=== PATIENT | female | born 1950 | race Caucasian/White ===

== ENCOUNTER 2016-10-14 09:16 | Emergency (ER) | payer MEDICARE, BC ==
[2016-10-14 09:57] VITALS: BP 124/68
--- NOTE | 2016-10-14 10:14 | UC ---
Complaint Female HPI - HPI Summary HPI Summary: Urinary pain, urgency, and cramping starting 2-3 days ago. Has had UTIs in the past, this feels just like it. No fever, vomiting, or back pain. - History Of Current Complaint Chief Complaint: UCGU Stated Complaint: UTI COMPLAINT Time Seen by Provider: 10/14/16 09:59 Hx Obtained From: Patient ?: No Onset/Duration: Gradual Onset, Lasting Days Timing: Constant Severity Initially: Mild Severity Currently: Mild Character: Burning, Cramping Aggravating Factor(s): Urination Associated Signs And Symptoms: Negative: Nausea, Vomiting(# Of Episodes =) - Allergies/Home Medications Allergies/Adverse Reactions: Allergies Allergy/AdvReac Type Severity Reaction Status Date / Time POISON LOLI Allergy BLISTERS, Uncoded 10/14/16 09:50 ITCHY PMH/Surg Hx/FS Hx/Imm Hx Other Cancer History: anal cancer with radiation - Surgical History Surgical History: Yes Surgery Procedure, Year, and Place: 2010 ANAL CANCER SURGERY X2, [facility]. 1977 HYSTERECTOMY, [facility]. 2003 LAPAROSCOPIC CHOLECYSTECTOMY. CATARACT 2012 [facility] - Family History Known Family History: Positive: Hypertension - Social History Alcohol Use: Occasionally Alcohol Amount: 1 Q 2 WEEKS Substance Use Type: None Smoking Status (MU): Never Smoked Tobacco Have You Smoked in the Last Year: No - Immunization History Most Recent Influenza Vaccination: 2012 Most Recent Tetanus Shot: <5 YEARS ( OF 10/12/15) Most Recent Pneumonia Vaccination: patient unsure Review of Systems Constitutional: Negative Skin: Negative Eyes: Negative ENT: Negative Respiratory: Negative Cardiovascular: Negative Gastrointestinal: Negative Genitourinary: Dysuria, Frequency, Urgency Motor: Negative Neurovascular: Negative Musculoskeletal: Negative Neurological: Negative Psychological: Negative All Other Systems Reviewed And Are Negative: Yes Physical Exam Triage Information Reviewed: Yes Appearance: Well-Appearing, No Pain Distress, Well-Nourished Vital Signs: Initial Vital Signs Temp 97.2 F 10/14/16 09:52 Pulse 61 10/14/16 09:52 Resp 16 10/14/16 09:52 BP 124/68 10/14/16 09:52 Pulse Ox 100 10/14/16 09:52 Vital Signs Reviewed: Yes Eye Exam: Normal, Other - PERRL Eyes: Positive: Conjunctiva Clear ENT Exam: Normal ENT: Positive: Normal ENT inspection, Hearing grossly normal, Pharynx normal, TMs normal Dental Exam: Normal Neck exam: Normal Neck: Positive: Supple, Nontender Respiratory Exam: Normal Respiratory: Positive: Chest non-tender, Lungs clear, Normal breath sounds, No respiratory distress, No accessory muscle use Cardiovascular Exam: Normal Cardiovascular: Positive: RRR, No Murmur Abdomen Description: Negative: CVA Tenderness (R), CVA Tenderness (L) Musculoskeletal Exam: Normal Neurological Exam: Normal Neurological: Positive: Alert Psychological Exam: Normal Skin Exam: Normal Complaint Female Dx - Differential Dx/Diagnosis Provider Diagnoses: UTI Discharge - Discharge Plan Condition: Stable Disposition: HOME
== END 2016-10-14 10:23 | disposition home or self-care (01) ==
LOC: UCEAST 09:16
DX: N39.0 Urinary tract infection, site not specified (principal); Z87.440 Personal history of urinary (tract) infections; Z85.048 Personal history of other malignant neoplasm of rectum, rectosigmoid junction, and anus; Z92.3 Personal history of irradiation
CPT/HCPCS: 81003; 87077; 87086; 87186; 99212; G0463

== ENCOUNTER 2017-01-25 18:53 | Emergency (ER) | payer MEDICARE, BC ==
[2017-01-25 20:00] LABS: Hematocrit 39 % (35-47); Hemoglobin 13.6 g/dl (12.0-16.0); Mean Corpuscular HGB Conc 35 g/dl (31-36); Mean Corpuscular Hemoglobin 32 pg (27-31); Mean Corpuscular Volume 93 fL (80-97); Mean Platelet Volume 7 um3 (7.4-10.4); Red Blood Count 4.23 10^6/ul (4.0-5.4); Red Cell Distribution Width 14 % (10.5-15); White Blood Count 5.7 10^3/ul (3.5-10.8)
[2017-01-25 20:16] LABS: Albumin 4.4 g/dL (3.2-5.2); BUN/Creatinine Ratio 16.1 (8-20); Calcium 9.8 mg/dL (8.6-10.3); EGFR African American 77.1 (>60); Globulin 2.8 g/dL (2-4); Magnesium 1.9 mg/dL (1.9-2.7); Potassium 3.9 mmol/L (3.5-5.0); Total Bilirubin 0.6 mg/dL (0.2-1.0); Total Protein 7.2 g/dL (6.4-8.9)
[2017-01-25 20:21] LABS: Urine Bacteria 1+ (Absent); Urine Bilirubin Negative (Negative); Urine Glucose Negative (Negative); Urine Nitrite Negative (Negative)
--- NOTE | 2017-01-25 20:28 | RAD ---
Indication: Confusion, amnesia. CT of the brain was performed without IV contrast. Ventricular structures are midline. No midline shift is noted. The extra-axial spaces are unremarkable. There is no evidence of intracranial mass or hemorrhage. No other high or low density lesions are identified. Mastoid air cells and paranasal sinuses are unremarkable. IMPRESSION: There is no intracranial mass or hemorrhage noted.
[2017-01-25 21:31] LABS: TSH (Thyroid Stimulating Horm) 4.37 mcIU/mL (0.34-5.60)
[2017-01-25 21:51] LABS: Benzodiazepine Urine Screen None Detected (None Detect)
--- NOTE | 2017-01-25 22:10 | ED ---
Mark Mg Stephanie, scribed for Rudy Nails MD on 01/25/17 at 2133 . Complex/Multi-Sys Presentation - HPI Summary HPI Summary: Pt is a 66 y/o F with c/o confusion that began at 19:41. Pt was carrying a Lakshmi tree into her house after leaving work at 18:00 today. She describes her symptoms as a de-realization. Symptoms include confusion, mild headache, and slight bleeding with BM that occurred when she returned home at approximately 18:30 today. The pt denies fever, chills, incontinence, trouble with speech, CP, and palpitations. She denies falling, taking medications, alcohol, drug use, and odd odors in her car or at home. - History Of Current Complaint Chief Complaint: EDGeneral Time Seen by Provider: 01/25/17 19:23 Onset/Duration: Sudden Onset, Lasting Hours, Still Present Timing: Constant Associated Signs And Symptoms: Positive: Confusion, Headache - mild, Other - Positive: Blood in BM, Negative: Incontinence, trouble with speech. Negative: Chest Pain, Palpitations, Fever - Allergies/Home Medications Allergies/Adverse Reactions: Allergies Allergy/AdvReac Type Severity Reaction Status Date / Time POISON LOLI Allergy BLISTERS, Uncoded 01/25/17 19:17 ITCHY PMH/Surg Hx/FS Hx/Imm Hx Endocrine/Hematology History: Reports: Hx Anemia Denies: Hx Diabetes, Hx Systemic Lupus Erythematosus Cardiovascular History: Reports: Hx Hypotension Denies: Hx Congestive Heart Failure, Hx Hypertension, Hx Pacemaker/ICD, Other Cardiovascular Problems/Disorders Respiratory History: Denies: Other Respiratory Problems/Disorders GI History: Reports: Hx Obstructive Bowel, Other GI Disorders - SEVERAL BOWEL OBSTRUCTIONS, 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 Denies: Hx Cirrhosis, Hx Crohn's Disease, Hx Diverticulosis, Hx Gall Bladder Disease, Hx Gastroesophageal Reflux Disease, Hx Gastrointestinal Bleed, Hx Hiatal Hernia, Hx Irritable Bowel, Hx Jaundice, Hx Ileostomy, Hx Pyloric Stenosis, Hx Ulcer History: Reports: Other Problems/Disorders - OCCASIONAL UTI - NONE NOW Denies: Hx Dialysis, Hx Renal Disease Musculoskeletal History: Reports: Hx Arthritis - ARTHRITIS IN BACK, Hx Back Problems, Other Musculoskeletal History - HAVING PHYSICAL THERPHY FOR RIGHT SHOULDER Denies: Hx Rheumatoid Arthritis Sensory History: Reports: Hx Cataracts - [facility] Denies: Hx Contacts or Glasses, Hx Glaucoma, Hx Legally Blind, Hx Macular Degeneration, Hx Vision Problem, Hx Deafness, Hx Hearing Aid Opthamlomology History: Reports: Hx Cataracts - [facility] Denies: Hx Contacts or Glasses, Hx Glaucoma, Hx Legally Blind, Hx Macular Degeneration, Hx Vision Problem Neurological History: Denies: Other Neuro Impairments/Disorders Psychiatric History: Reports: Hx Anxiety Denies: Hx Panic Disorder - Cancer History Cancer Type, Location and Year: ANAL CANCER Hx Chemotherapy: Yes - LAST TREATMENT SUMMER 2013 Hx Radiation Therapy: Yes Hx Palliative Cancer Treatment: No - Surgical History Surgery Procedure, Year, and Place: 2010 ANAL CANCER SURGERY X2, [facility]. 1978 HYSTERECTOMY, [facility]. 2003 LAPAROSCOPIC CHOLECYSTECTOMY. CATARACT 2013 [facility] Hx Anesthesia Reactions: Yes - 2010, DIFF WAKING UP, SECOND ONE [place] - Immunization History Date of Tetanus Vaccine: utd Date of Influenza Vaccine: utd Infectious Disease History: No Infectious Disease History: Reports: Hx Shingles Denies: Hx Clostridium Difficile, Hx Hepatitis, Hx Human Immunodeficiency Virus (HIV), Hx of Known/Suspected MRSA, Hx Tuberculosis, Hx Known/Suspected VRE , Hx Known/Suspected VRSA, Traveled Outside the in Last 30 Days - Family History Known Family History: Positive: Hypertension, Other - Paternal: Stroke, maternal : pancreatic cancer - Social History Lives: Alone Alcohol Use: Rare Alcohol Amount: 1 Q 2 WEEKS Hx Substance Use: No Substance Use Type: Reports: None Hx Tobacco Use: No Smoking Status (MU): Never Smoked Tobacco Have You Smoked in the Last Year: No Review of Systems Negative: Fever, Chills Negative: Palpitations, Chest Pain Positive: Other - Positive: Blood in BM Positive: Headache All Other Systems Reviewed And Are Negative: Yes Physical Exam - Summary Physical Exam Summary: Appearance: Well-appearing, Well-nourished Skin: Warm, Dry, No rash Eyes: Normal, PERRL, EOMI, sclera anicteric ENT: Normal Neck: Supple, nontender Respiratory: Clear to auscultation Cardiovascular: S1, S2, no murmur, no rub, no gallop Abdomen: Soft, nontender, no organomegaly Bowel sounds: Present Musculoskeletal: Normal, Strength/ROM Intact, no edema, pulses symmetrical Neurological: A&Ox3, cranial nerves II-XII WNL, follows commands, gait not tested, sensation intact to pin and light touch. Slight decreased rapid alternating motion in R hand. Amnesia for certain portion of the past hour. Psychiatric: affect normal, behavior appropriate, dressed appropriately, judgment intact Triage Information Reviewed: Yes Vital Signs On Initial Exam: Initial Vitals Temp Pulse Resp BP Pulse Ox 97.7 F 83 18 158/73 100 01/25/17 18:55 01/25/17 18:55 01/25/17 18:55 01/25/17 18:55 01/25/17 18:55 Vital Signs Reviewed: Yes - Santino Coma Scale Coma Scale Total: 15 Diagnostics - Vital Signs Vital Signs Temp Pulse Resp BP Pulse Ox 01/25/17 18:55 97.7 F 83 18 158/73 100 - Laboratory Lab Results: Lab Results 01/25/17 01/25/17 01/25/17 Range/Units 19:52 19:52 19:52 WBC 5.7 (3.5-10.8) 10^3/ul RBC 4.23 (4.0-5.4) 10^6/ul Hgb 13.6 (12.0-16.0) g/dl Hct 39 (35-47) % MCV 93 (80-97) fL MCH 32 H (27-31) pg MCHC 35 (31-36) g/dl RDW 14 (10.5-15) % Plt Count 265 (150-450) 10^3/ul MPV 7 L (7.4-10.4) um3 Neut % (Auto) 78.2 (38-83) % Lymph % (Auto) 15.4 L (25-47) % [place] % (Auto) 5.5 (1-9) % Eos % (Auto) 0.3 (0-6) % Baso % (Auto) 0.6 (0-2) % Absolute Neuts (auto) 4.5 (1.5-7.7) 10^3/ul Absolute Lymphs (auto) 0.9 L (1.0-4.8) 10^3/ul Absolute Monos (auto) 0.3 (0-0.8) 10^3/ul Absolute Eos (auto) 0 (0-0.6) 10^3/ul Absolute Basos (auto) 0 (0-0.2) 10^3/ul Absolute Nucleated RBC 0 10^3/ul Nucleated RBC % 0.1 Carbon Monoxide Screen < 4 (<4.0) % Sodium 134 (133-145) mmol/L Potassium 3.9 (3.5-5.0) mmol/L Chloride 100 L (101-111) mmol/L Carbon Dioxide 26 (22-32) mmol/L Anion Gap 8 (2-11) mmol/L BUN 15 (6-24) mg/dL Creatinine 0.93 (0.51-0.95) mg/dL Est GFR ( Amer) 77.1 (>60) Est GFR (Non-Af Amer) 60.0 (>60) BUN/Creatinine Ratio 16.1 (8-20) Glucose 108 H (70-100) mg/dL Calcium 9.8 (8.6-10.3) mg/dL Magnesium 1.9 (1.9-2.7) mg/dL Total Bilirubin 0.60 (0.2-1.0) mg/dL AST 23 (13-39) U/L ALT 19 (7-52) U/L Alkaline Phosphatase 43 (34-104) U/L Troponin I 0.00 (<0.04) ng/mL Total Protein 7.2 (6.4-8.9) g/dL Albumin 4.4 (3.2-5.2) g/dL Globulin 2.8 (2-4) g/dL Albumin/Globulin Ratio 1.6 (1-3) TSH 4.37 (0.34-5.60) mcIU/mL Urine Color Urine Appearance Urine pH (5-9) Ur Specific [place] (1.010-1.030) Urine Protein (Negative) Urine Ketones (Negative) Urine Blood (Negative) Urine Nitrate (Negative) Urine Bilirubin (Negative) Urine Urobilinogen (Negative) Ur Leukocyte Esterase (Negative) Urine WBC (Auto) (Absent) Urine RBC (Auto) (Absent) Ur Squamous Epith Cells (Absent) Urine Bacteria (Absent) Urine Glucose (Negative) Urine Opiates Screen (None Detect) Ur Barbiturates Screen (None Detect) Ur Phencyclidine Scrn (None Detect) Ur Amphetamines Screen (None Detect) U Benzodiazepines Scrn (None Detect) Urine Cocaine Screen (None Detect) U Cannabinoids Screen (None Detect) 01/25/17 01/25/17 Range/Units 20:05 20:05 WBC (3.5-10.8) 10^3/ul RBC (4.0-5.4) 10^6/ul Hgb (12.0-16.0) g/dl Hct (35-47) % MCV (80-97) fL MCH (27-31) pg MCHC (31-36) g/dl RDW (10.5-15) % Plt Count (150-450) 10^3/ul MPV (7.4-10.4) um3 Neut % (Auto) (38-83) % Lymph % (Auto) (25-47) % [place] % (Auto) (1-9) % Eos % (Auto) (0-6) % Baso % (Auto) (0-2) % Absolute Neuts (auto) (1.5-7.7) 10^3/ul Absolute Lymphs (auto) (1.0-4.8) 10^3/ul Absolute Monos (auto) (0-0.8) 10^3/ul Absolute Eos (auto) (0-0.6) 10^3/ul Absolute Basos (auto) (0-0.2) 10^3/ul Absolute Nucleated RBC 10^3/ul Nucleated RBC % Carbon Monoxide Screen (<4.0) % Sodium (133-145) mmol/L Potassium (3.5-5.0) mmol/L Chloride (101-111) mmol/L Carbon Dioxide (22-32) mmol/L Anion Gap (2-11) mmol/L BUN (6-24) mg/dL Creatinine (0.51-0.95) mg/dL Est GFR ( Amer) (>60) Est GFR (Non-Af Amer) (>60) BUN/Creatinine Ratio (8-20) Glucose (70-100) mg/dL Calcium (8.6-10.3) mg/dL Magnesium (1.9-2.7) mg/dL Total Bilirubin (0.2-1.0) mg/dL AST (13-39) U/L ALT (7-52) U/L Alkaline Phosphatase (34-104) U/L Troponin I (<0.04) ng/mL Total Protein (6.4-8.9) g/dL Albumin (3.2-5.2) g/dL Globulin (2-4) g/dL Albumin/Globulin Ratio (1-3) TSH (0.34-5.60) mcIU/mL Urine Color Straw Urine Appearance Clear Urine pH 6.0 (5-9) Ur Specific [place] 1.003 L (1.010-1.030) Urine Protein Negative (Negative) Urine Ketones Trace H (Negative) Urine Blood 1+ H (Negative) Urine Nitrate Negative (Negative) Urine Bilirubin Negative (Negative) Urine Urobilinogen Negative (Negative) Ur Leukocyte Esterase Negative (Negative) Urine WBC (Auto) Trace(0-5/hpf) (Absent) Urine RBC (Auto) Trace(0-2/hpf) (Absent) Ur Squamous Epith Cells Present H (Absent) Urine Bacteria 1+ H (Absent) Urine Glucose Negative (Negative) Urine Opiates Screen None detected (None Detect) Ur Barbiturates Screen None detected (None Detect) Ur Phencyclidine Scrn None detected (None Detect) Ur Amphetamines Screen None detected (None Detect) U Benzodiazepines Scrn None detected (None Detect) Urine Cocaine Screen None detected (None Detect) U Cannabinoids Screen None detected (None Detect) Result Diagrams: 01/25/17 19:52 01/25/17 19:52 Lab Statement: Any lab studies that have been ordered have been reviewed, and results considered in the medical decision making process. - Radiology CT Brain Xray Interpretation: No Acute Changes Radiology Interpretation Completed By: Radiologist - There is no intracranial mass or hemorrhage noted. - EKG 19:25 EKG Rhythm: Sinus Rhythm Ectopy: None EKG Interpretation: L anterior vesicular block Complex Multi-Symp Course/Dx Course Of Treatment: Pt is a 66 y/o F with c/o confusion that began at 19:41. She describes her symptoms as a de-realization. Symptoms include confusion, mild headache, and slight bleeding with BM that occurred when she returned home at approximately 18:30 today. Possible absent seizure. No direct evidence at the present time. Referral to PCP for further evaluation, MRI and EEG. Will not commit to a course of anti-covulsant medication until further documentation of proof of seizure. No driving until evaluated by PCP or neurologist. No further activities where LOC would put you in danger; ie. swimming. - Diagnoses Differential Diagnoses/HQI/PQRI: Other - absence seizure Provider Diagnoses: Seizure disorder Discharge - Discharge Plan Condition: Fair Disposition: HOME Patient Education Materials: Urinary Tract Infection in Women (ED), New-Onset Seizure in Adults (ED) Referrals: Sharon Livingston MD [Primary Care Provider] - Additional Instructions: needs to be evaluated with EEG , neuro and MRI The documentation as recorded by the Mark calle Stephanie accurately reflects the service I personally performed and the decisions made by me, Rudy Nails MD.
[2017-01-25 22:28] VITALS: BP 136/70
== END 2017-01-25 22:28 | disposition home or self-care (01) ==
LOC: ED 18:53
DX: G40.909 Epilepsy, unspecified, not intractable, without status epilepticus (principal); Z85.048 Personal history of other malignant neoplasm of rectum, rectosigmoid junction, and anus; Z92.3 Personal history of irradiation; F41.9 Anxiety disorder, unspecified; I45.5 Other specified heart block
CPT/HCPCS: 36415; 70450; 80053; 80307; 81003; 81015; 82375; 83735; 84443; 84484; 85025; 87086; 93005; 99282

== ENCOUNTER 2018-06-30 07:08 | Emergency (ER) | payer MEDICARE, BC ==
[2018-06-30 07:26] VITALS: BP 146/68
--- NOTE | 2018-06-30 07:43 | UC ---
Bite Injury/Animal HPI - HPI Summary HPI Summary: Patient presents to urgent care for evaluation of her left hand wound. Patient was bitten by her daughter's boxer yesterday. Dog's vaccinations up-to-date. Patient states she did not clean the wound She bandaged it. Patient states she took some Tylenol last night, nothing today. Patient states this morning she noted increased redness, swelling, and pain. Patient also noticed red streaking arm. No fevers or chills. Patient is not inial, mild. No analgesia taken today. Patient does not know when her last tetanus shot was. Patient states the dog's vaccinations are up-to-date. Patient medications reviewed this visit. Not immunocompromised. no blood thinner. RHD - History of Current Complaint Chief Complaint: UCBiteInjury Stated Complaint: DOG BITE Time Seen by Provider: 06/30/18 07:32 Hx Obtained From: Patient Pain Intensity: 8 - Allergies/Home Medications Allergies/Adverse Reactions: Allergies Allergy/AdvReac Type Severity Reaction Status Date / Time nitrofurantoin AdvReac Tinnitus Verified 06/30/18 07:27 [From Macrobid] POISON LOLI Allergy BLISTERS, Uncoded 01/25/17 19:17 ITCHY Home Medications: Home Medications Acetaminophen/Diphenhydramine [Tylenol Pm Ex-Strength Caplet] 1 each PO ONCE PRN 06/30/18 [History Confirmed 06/30/18] Cbd Oil 06/30/18 [History] Cyanocobalamin TAB* [Vitamin B12 TAB*] 1,000 mcg PO .EVERYOTHERDAY 06/30/18 [ History Confirmed 06/30/18] Multivitamin [Multiple Vitamins] 1 tab PO DAILY 06/30/18 [History Confirmed ] PMH/Surg Hx/FS Hx/Imm Hx Previously Healthy: Yes - Surgical History Surgical History: Yes Surgery Procedure, Year, and Place: 2010 ANAL CANCER SURGERY X2, [facility]. 1977 HYSTERECTOMY, [facility]. 2003 LAPAROSCOPIC CHOLECYSTECTOMY. CATARACT 2012 [facility] - Family History Known Family History: Positive: Hypertension, Other - Paternal: Stroke, maternal : pancreatic cancer - Social History Lives: With Family Alcohol Use: Rare Alcohol Amount: 1 Q 2 WEEKS Substance Use Type: None Smoking Status (MU): Never Smoked Tobacco Have You Smoked in the Last Year: No - Immunization History Most Recent Influenza Vaccination: 2013 Most Recent Tetanus Shot: unknown Most Recent Pneumonia Vaccination: patient unsure Review of Systems All Other Systems Reviewed And Are Negative: Yes Constitutional: Positive: Negative Skin: Positive: Bruising, Other - wound, erythema, ecchymosis Neurovascular: Positive: Negative Musculoskeletal: Positive: Negative Is Patient Immunocompromised?: No Physical Exam - Summary Physical Exam Summary: Vital Signs Reviewed: Yes A+Ox3, mild discomfort Eyes: Conjunctiva Clear ENT: Hearing grossly normal neck: supple Respiratory: Positive: No respiratory distress, No accessory muscle use Cardiovascular: skin color reflect adequate perfusion 2 + radial, 2+ ulnar CBT < 2 sec Musculoskeletal Exam: + thumb up, + flex/ext IP, mcp with discomfort base thumb + full extension/flexion index Neurological: Positive: Alert, ambulatory without difficulty + sensation throughout all digits Psychological: Positive: Normal Response To Family Skin: Positive: no rash, Pt with 1cm laceration base left thumb, dorsum. + ecchymosiss, edema dorsum webspace. + red streak to mid dorsum forearm. No drainage Triage Information Reviewed: Yes Vital Signs: Initial Vital Signs Temp 98.1 F 06/30/18 07:20 Pulse 63 06/30/18 07:20 Resp 16 06/30/18 07:20 BP 146/68 06/30/18 07:20 Pulse Ox 99 06/30/18 07:20 Procedures - Splinting Left Upper Extremity Location: left UE applied by me Hand-Made Type: orthoglass Splint: volar Pre-Proc Neuro Vasc Exam: normal Post-Proc Neuro Vasc Exam: normal Diagnostics - Radiology No standard instances Radiology Interpretation Completed By: Radiologist - Patient Name: MARY JO GARCIA Medical Record#: [id number] Ordering Physician: Krysten Barragan MD Acct.#: [id number] : 1950 Age: 67 Sex: F Location: [facility] Exam Date: 06/30/18 0754 ADM Status: REG ER Order Information: HAND - LEFT MINIMUM 3 VIEWS Accession Number: [id number] CPT: 05179 HISTORY: dog bite base 1st thumb . COMPARISONS: None relevant available at the time of dictation. VIEWS: 4, Frontal, lateral, and oblique views of the left hand FINDINGS: BONE DENSITY: Normal. BONES: There is no displaced fracture. JOINTS: There is osteoarthritis most pronounced at the second and third DIP joints, and at the first CMC and STT joints. ALIGNMENT: There is no dislocation. SOFT TISSUES: Unremarkable. OTHER FINDINGS: None. IMPRESSION: OSTEOARTHRITIS. NO ACUTE OSSEOUS INJURY. IF SYMPTOMS PERSIST, RECOMMEND REPEAT IMAGING. <Electronically signed by Carlos Ogden MD in OV> 06/30/18813 Dictated By: Carlos Ogden MD Dictated Date/Time: 06/30 Transcribed Date/Time: 06/30/18812 Copy to: CC:Krysten Barragan MD; Sharon Livingston MD Imaging - [facility] Imaging - [facility] [address] [address] ph ) ph ([phone]) ph ([phone]) This report is only to be considered final once signed by the Provider(s) as displayed in the "< Electronically Signed by >" field (s). Absence of a signature indicates the report is in a draft status and still needs to be finalized. In the event this document was created by someone other than the signing Provider, the individual initiating the document will be listed in the "Entered by:" or "Dictated by:" ramirez. 1 of 1 Bite Injury Course/Dx - Course Course Of Treatment: Patient presents for evaluation of dog bite injury that happened yesterday to her left hand. Patient states the dog is her daughter and is up-to-date on vaccinations. Patient did not clean wound yesterday. Patient is right-hand dominant. Patient does morning. Increased pain erythema ecchymosis. No drainage. Patient does have a mild streak on left forearm. Patient took Tylenol last night but nothing today. On exam vital signs are stable. Patient does have erythema and edema around the puncture wound. Patient does have good range of motion of the thumb and index finger. Patient also has some mild red streaking to the left dorsum hand. We'll x-ray for fracture as well as retained parts. Will give dose of IV/IM antibiotics here. We'll give Tylenol. We will irrigate wound. Bite wound for department health complete. We'll update tetanus. Will start patient on Augmentin. I spoke to Dr. Rodriguez's office and schedule patient for reevaluation at 1:30 tomorrow. Strict return precautions discussed with patient. Patient comfortable in agreement with plan. Pt with elevated BP - recommend f/u with pc p - pt in pain - related to today' s condition - Differential Dx/Diagnosis Provider Diagnosis: Dog bite of hand, Wound infection Discharge - Sign-Out/Discharge Documenting (check all that apply): Patient Departure All imaging exams completed and their final reports reviewed: Yes - Discharge Plan Condition: Stable Disposition: HOME Prescriptions: Amoxicillin/Clavulanate TAB* [Augmentin TAB 875*] 875 mg PO BID #20 tab Patient Education Materials: Animal Bite (ED) Referrals: Sharon Livingston MD [Primary Care Provider] - Abdullahi Rodriguez MD [Medical Doctor] - (1:30pm tomorrrow, 07/01/18 ) Additional Instructions: - elevate arm today to help with swelling and pain - take anitbiotics 2 times a day as prescribed - this will likely cause diarrhea - Okay to take Tylenol 1000mg every 6 hours for pain. Take with food - You have an appointment with an orthopedic provider, Dr. Rodriguez, tomorrow at 1 :30pm. It is important to keep this appointment. If you develop increased pain, fevers, chills, vomiting or any other concerns it is recommended you go to the emergency department for further evaluation - Billing Disposition and Condition Condition: STABLE Disposition: Home
[2018-06-30] MEDS ORDERED: Tetan/Diph/Pertus SYR(Tdap)* 0.5 ML SYR(BOOSTRIX) use SYR IM ONE (07:52)
[2018-06-30] MEDS ORDERED: cefTRIAXone(*) 1 GM in NS 0.9% 50 ML* 50 ML IVPB ONE (07:54)
[2018-06-30] MEDS ORDERED: Acetaminophen TAB* 325 MG PO ONE (07:58)
[2018-06-30] MEDS ORDERED: cefTRIAXone VIAL(*) 1,000 MG VIAL IVPB ONE (08:06)
[2018-06-30] MEDS ORDERED: cefTRIAXone VIAL(*) 1,000 MG VIAL IM ONE (08:32)
[2018-06-30] MEDS ORDERED: Lidocaine 1% MPF* 2 ML VIAL INJ ONE (08:32)
[2018-06-30] MEDS ORDERED: Lidocaine 1%* 5 ML VIAL ONE (08:36)
== END 2018-06-30 09:21 | disposition home or self-care (01) ==
LOC: UCEAST 07:08
DX: S61.412A Laceration without foreign body of left hand, initial encounter (principal); L03.114 Cellulitis of left upper limb; W54.0XXA Bitten by dog, initial encounter; Y92.9 Unspecified place or not applicable; Z23 Encounter for immunization; Z88.1 Allergy status to other antibiotic agents; M19.042 Primary osteoarthritis, left hand
CPT/HCPCS: 90471; 90715; 96372; 99213; A9270-GY; G0463; J0696

== ENCOUNTER 2023-03-09 17:36 | Observation (INO) ==
[2023-03-09 18:51] LABS: ABS Lymphocytes 0.3 10^3/uL (1.0-4.8); ABS Monocytes 0.2 10^3/uL (0.0-0.9); ABS Neutrophils 4.7 10^3/uL (1.5-7.6); Eosinophil % 0.5 %; Hematocrit 42.3 % (35-45); Hemoglobin 14.3 g/dL (11.5-14.3); Lymphocyte % 5.6 %; Mean Corpuscular Hemoglobin 29.8 pg (27-33); Mean Corpuscular Hgb Conc 33.9 g/dL (31-36); Mean Corpuscular Volume 87.9 fL (80-97); Mean Platelet Volume 7.1 fL (7.5-11.2); Nucleated Red Blood Cells % 0.1 %/100WBC (0.0-0.8); Platelet Count 352 10^3/uL (150-450); Red Blood Count 4.82 10^6/uL (3.63-4.92); Red Cell Distribution Width 14.9 % (12-17); White Blood Count 5.2 10^3/uL (3.8-11.8)
[2023-03-09] MEDS ORDERED: Ondansetron 4 mg VIAL 2 MG/ML 2 ml VIAL IV ONE ×2 (18:56→19:38)
[2023-03-09 19:01] LABS: Rapid COVID-19 Molecular Undetected (Undetected)
[2023-03-09] MEDS ORDERED: Lactated Ringers 1000 ml BAG 1,000 ML IV ONE (19:02)
[2023-03-09 19:17] LABS: Influenza A Molecular Negative (Negative); Influenza B Molecular Negative (Negative)
[2023-03-09 19:22] LABS: ALT 22 U/L (7-52); Albumin/Globulin Ratio 1.6 (1-3); Alkaline Phosphatase 52 U/L (35-149); Anion Gap 10 mmol/L (2-16); Blood Urea Nitrogen 24 mg/dL (6-24); CO2 Carbon Dioxide 25 mmol/L (22-32); Calcium 9.9 mg/dL (8.6-10.3); Chloride 100 mmol/L (101-111); Creatinine, Serum 1.05 mg/dL (0.51-0.95); Globulin 3.1 g/dL (2-4); Glucose 140 mg/dL (70-100); Lipase 29 U/L (11.0-82.0); Sodium 135 mmol/L (135-145); Total Bilirubin 0.6 mg/dL (0.2-1.0); Total Protein 8.1 g/dL (6.4-8.9); eGFR CKD-EPI 55.8 (>60)
[2023-03-09] MEDS ORDERED: Morphine 2 MG/ML SYRINGE IV PRN (19:35)
[2023-03-09] MEDS ORDERED: Prochlorperazine 5 mg/ml 2 ml VIAL (10 mg) IV PRN (19:38)
[2023-03-09 20:19] LABS: Potassium Redraw 4.3 mmol/L (3.5-5.0)
[2023-03-09] MEDS ORDERED: Iodixanol (CONTRAST) 320 MG/ML 100 ML SDV IV ONE (20:36)
[2023-03-09] MEDS ORDERED: Ondansetron 4 mg VIAL 2 MG/ML 2 ml VIAL IV PRN (22:44)
[2023-03-10] MEDS ORDERED: Lactated Ringers 1000 ml BAG 1,000 ML IV SCH (01:00)
[2023-03-10] MEDS ORDERED: Enoxaparin 30 MG/0.3 ML SYR SUBCUT SCH (01:00)
[2023-03-10 07:37] LABS: ABS Eosinophils 0.1 10^3/uL (0.0-0.5); ABS Lymphocytes 0.7 10^3/uL (1.0-4.8); ABS Monocytes 0.4 10^3/uL (0.0-0.9); ABS Nucleated RBC 0.01 10^3/ul; Eosinophil % 1.5 %; Lymphocyte % 12.5 %; Mean Corpuscular Hemoglobin 30.3 pg (27-33); Mean Corpuscular Hgb Conc 34.3 g/dL (31-36); Mean Corpuscular Volume 88.3 fL (80-97); Mean Platelet Volume 6.7 fL (7.5-11.2); Nucleated Red Blood Cells % 0.1 %/100WBC (0.0-0.8); Platelet Count 275 10^3/uL (150-450); Red Blood Count 3.63 10^6/uL (3.63-4.92); Red Cell Distribution Width 14.7 % (12-17); White Blood Count 5.2 10^3/uL (3.8-11.8)
[2023-03-10 07:51] LABS: Calcium 7.9 mg/dL (8.6-10.3); Creatinine, Serum 1.05 mg/dL (0.51-0.95); Potassium 4.2 mmol/L (3.5-5.0); eGFR CKD-EPI 55.8 (>60)
[2023-03-10 14:12] VITALS: BP 99/41
== END 2023-03-10 18:00 | disposition home or self-care (01) ==
LOC: ED 17:36 → EDHOLD 17:36 → SUATTDRO 22:44 → MEDTELE 03-10 01:30
PROVIDERS: ADMIT Internal Medicine; ATTEND Family Medicine

== ENCOUNTER 2023-07-25 00:50 | Inpatient (IN) ==
[2023-07-25] MEDS: Lactated Ringers 1000 ml BAG 1,000 ML IV ONE ×2 (06:19→12:06)
[2023-07-25 08:12] LABS: Urine Appearance Clear; Urine Bilirubin Negative (Negative); Urine Blood Negative (Negative); Urine Color Colorless; Urine Glucose Negative (Negative); Urine Ketones Trace (Negative); Urine Nitrite Negative (Negative); Urine Protein Negative (Negative); Urine Specific Gravity 1.024 (1.002-1.030); Urine Urobilinogen Negative (Negative); Urine pH 6.5 (5.0-8.0)
[2023-07-25 10:02] LABS: ABS Lymphocytes 0.5 10^3/uL (1.0-4.8); ABS Monocytes 0.4 10^3/uL (0.0-0.9); ABS Neutrophils 2.5 10^3/uL (1.5-7.6); Eosinophil % 1.2 %; Hematocrit 26.3 % (35-45); Mean Corpuscular Hemoglobin 30.1 pg (27-33); Mean Corpuscular Hgb Conc 34.2 g/dL (31-36); Mean Platelet Volume 6.1 fL (7.5-11.2); Nucleated Red Blood Cells % 0.1 %/100WBC (0.0-0.8); Platelet Count 429 10^3/uL (150-450); Red Blood Count 2.99 10^6/uL (3.63-4.92); Red Cell Distribution Width 15.1 % (12-17); White Blood Count 3.6 10^3/uL (3.8-11.8)
[2023-07-25 11:06] LABS: ALT 42 U/L (7-52); Albumin 3.2 g/dL (3.2-5.2); Albumin/Globulin Ratio 1.3 (1-3); Alkaline Phosphatase 237 U/L (35-149); Anion Gap 9 mmol/L (2-16); Blood Urea Nitrogen 10 mg/dL (6-24); C Reactive Protein 185.79 mg/L (<8.01); CO2 Carbon Dioxide 27 mmol/L (22-32); Calcium 8.2 mg/dL (8.6-10.3); Chloride 103 mmol/L (101-111); Creatinine, Serum 0.61 mg/dL (0.51-0.95); Globulin 2.5 g/dL (2-4); Glucose 102 mg/dL (70-100); Sodium 139 mmol/L (135-145); Total Bilirubin 0.5 mg/dL (0.2-1.0); Total Protein 5.7 g/dL (6.4-8.9); eGFR CKD-EPI 93.8 (>60)
[2023-07-25 12:52] LABS: Potassium Redraw 4.2 mmol/L (3.5-5.0)
[2023-07-25] MEDS: Polyethylene Glycol 3350 BTL 238 GM BTL PO ONE (13:54)
[2023-07-25] MEDS: Vancomycin 1,250 MG in NS 0.9% 250 ml 250 ML IVPB ONE (14:04)
[2023-07-25] MEDS ORDERED: Zosyn per Pharmacy NOTE FOLLOW UP SCH (15:00)
[2023-07-25] MEDS: Ondansetron 4 mg VIAL 2 MG/ML 2 ml VIAL IV ONE (16:25)
[2023-07-25] MEDS: Enoxaparin 40 MG/0.4 ML SYR SUBCUT SCH (16:28)
[2023-07-25] MEDS: cefTRIAXone 1 gm/50 mL D5W 1 GM/50 ML BAG IV ONE (17:11)
[2023-07-25] MEDS: Piperacillin/Tazobac 3.375 BAG 3.375 GM/100 ML BAG IV ONE (17:39)
[2023-07-25] MEDS: fentaNYL 100 mcg/2 ml 50 MCG/ML VIAL IV SLOW PU ONE (21:41)
[2023-07-25] MEDS: Pantoprazole VIAL 40 MG VIAL IV SCH (21:51)
[2023-07-25] MEDS: Senna TAB 8.6 mg TAB PO PRN (21:59)
[2023-07-25] MEDS ORDERED: Vancomycin per Pharmacy 1 EA NOTE FOLLOW UP SCH (22:00)
[2023-07-26] MEDS: Vancomycin 750 MG in NS 0.9% 250 ML IVPB SCH ×2 (00:21→02:18)
[2023-07-26 06:49] LABS: ABS Eosinophils 0.1 10^3/uL (0.0-0.5); ABS Lymphocytes 0.5 10^3/uL (1.0-4.8); ABS Monocytes 0.4 10^3/uL (0.0-0.9); ABS Neutrophils 2.3 10^3/uL (1.5-7.6); Eosinophil % 1.7 %; Hematocrit 24.8 % (35-45); Hemoglobin 8.7 g/dL (11.5-14.3); Lymphocyte % 16.2 %; Mean Corpuscular Hemoglobin 30.8 pg (27-33); Mean Corpuscular Hgb Conc 34.9 g/dL (31-36); Mean Corpuscular Volume 88.3 fL (80-97); Mean Platelet Volume 6.2 fL (7.5-11.2); Platelet Count 411 10^3/uL (150-450); Red Blood Count 2.81 10^6/uL (3.63-4.92); Red Cell Distribution Width 14.7 % (12-17); White Blood Count 3.2 10^3/uL (3.8-11.8)
[2023-07-26 06:52] LABS: Albumin/Globulin Ratio 1.3 (1-3); C Reactive Protein 162.51 mg/L (<8.01); Calcium 7.6 mg/dL (8.6-10.3); Creatinine, Serum 0.65 mg/dL (0.51-0.95); Globulin 2.3 g/dL (2-4); Potassium 4.3 mmol/L (3.5-5.0); Total Bilirubin 0.4 mg/dL (0.2-1.0); Total Protein 5.3 g/dL (6.4-8.9); eGFR CKD-EPI 92.3 (>60)
[2023-07-26] MEDS: Magnesium Hydroxide LIQ 30 ML UDC PO PRN (08:50)
[2023-07-26] MEDS: Polyethylene Glycol 3350 17 GM PACKET PO SCH (08:52)
[2023-07-26] MEDS: fentaNYL 250 mcg/5 ml 50 MCG/ML 5 ml VIAL (250 MCG) ONE (13:38)
[2023-07-26] MEDS: cefTRIAXone 1 gm/50 mL D5W 1 GM/50 ML BAG IV SCH (15:31)
[2023-07-26] MEDS ORDERED: cefTRIAXone 2 gm/50 mL D5W 2 GM/50 ML BAG IV SCH (17:00)
[2023-07-26] MEDS: Ondansetron ODT 4 mg TAB 4 MG TAB SL PRN (17:14)
[2023-07-26] MEDS: Vancomycin Trough Check NOTE FOLLOW UP ONE (18:34)
[2023-07-26] MEDS: cefTRIAXone 1 gm/50 mL D5W 1 GM/50 ML BAG IV ONE (18:35)
[2023-07-27] MEDS: HYDROmorphone 1 MG/1 ML SYRINGE IV SLOW PU ONE (05:21)
[2023-07-27 08:58] LABS: ABS Eosinophils 0.1 10^3/uL (0.0-0.5); ABS Lymphocytes 0.4 10^3/uL (1.0-4.8); ABS Monocytes 0.4 10^3/uL (0.0-0.9); Eosinophil % 1.6 %; Hematocrit 27.6 % (35-45); Hemoglobin 9.5 g/dL (11.5-14.3); Lymphocyte % 10.7 %; Mean Corpuscular Hemoglobin 30.1 pg (27-33); Mean Corpuscular Hgb Conc 34.3 g/dL (31-36); Mean Corpuscular Volume 87.8 fL (80-97); Mean Platelet Volume 5.4 fL (7.5-11.2); Platelet Count 497 10^3/uL (150-450); Red Blood Count 3.14 10^6/uL (3.63-4.92); Red Cell Distribution Width 14.5 % (12-17); White Blood Count 3.9 10^3/uL (3.8-11.8)
[2023-07-27 09:38] LABS: Albumin 3.2 g/dL (3.2-5.2); Albumin/Globulin Ratio 1.3 (1-3); C Reactive Protein 162.67 mg/L (<8.01); Creatinine, Serum 0.64 mg/dL (0.51-0.95); Globulin 2.5 g/dL (2-4); Potassium 4.3 mmol/L (3.5-5.0); Total Bilirubin 0.3 mg/dL (0.2-1.0); Total Protein 5.7 g/dL (6.4-8.9); eGFR CKD-EPI 92.7 (>60)
[2023-07-27] MEDS: cefTRIAXone 2 gm/50 mL D5W 2 GM/50 ML BAG IV SCH (18:44)
[2023-07-28] MEDS: HYDROmorphone 1 MG/1 ML SYRINGE IV SLOW PU ONE (02:32)
[2023-07-28 06:55] LABS: ABS Eosinophils 0.1 10^3/uL (0.0-0.5); ABS Lymphocytes 0.5 10^3/uL (1.0-4.8); ABS Monocytes 0.4 10^3/uL (0.0-0.9); ABS Neutrophils 2.7 10^3/uL (1.5-7.6); ABS Nucleated RBC 0.01 10^3/ul; Eosinophil % 3.5 %; Hematocrit 26.6 % (35-45); Lymphocyte % 14.2 %; Mean Corpuscular Hemoglobin 29.5 pg (27-33); Mean Corpuscular Hgb Conc 33.9 g/dL (31-36); Mean Corpuscular Volume 87.1 fL (80-97); Mean Platelet Volume 6.1 fL (7.5-11.2); Nucleated Red Blood Cells % 0.3 %/100WBC (0.0-0.8); Platelet Count 507 10^3/uL (150-450); Red Blood Count 3.06 10^6/uL (3.63-4.92); Red Cell Distribution Width 14.9 % (12-17); White Blood Count 3.7 10^3/uL (3.8-11.8)
[2023-07-29 07:57] LABS: ABS Eosinophils 0.2 10^3/uL (0.0-0.5); ABS Lymphocytes 0.4 10^3/uL (1.0-4.8); ABS Monocytes 0.3 10^3/uL (0.0-0.9); ABS Neutrophils 3.9 10^3/uL (1.5-7.6); Eosinophil % 3.3 %; Hematocrit 29.3 % (35-45); Hemoglobin 10.1 g/dL (11.5-14.3); Lymphocyte % 8.7 %; Mean Corpuscular Hemoglobin 30.1 pg (27-33); Mean Corpuscular Hgb Conc 34.3 g/dL (31-36); Mean Corpuscular Volume 87.8 fL (80-97); Mean Platelet Volume 5.9 fL (7.5-11.2); Platelet Count 554 10^3/uL (150-450); Red Blood Count 3.34 10^6/uL (3.63-4.92); Red Cell Distribution Width 14.8 % (12-17); White Blood Count 4.8 10^3/uL (3.8-11.8)
[2023-07-29 08:38] LABS: C Reactive Protein 95.36 mg/L (<8.01); Calcium 8.5 mg/dL (8.6-10.3); Creatinine, Serum 0.67 mg/dL (0.51-0.95); Potassium 4.4 mmol/L (3.5-5.0); eGFR CKD-EPI 91.7 (>60)
[2023-07-29 08:40] LABS: Creatinine, Serum 0.68 mg/dL (0.51-0.95); Vancomycin Trough 18.7 mcg/mL; eGFR CKD-EPI 91.3 (>60)
[2023-07-29] MEDS: Vancomycin Trough Check NOTE FOLLOW UP ONE (08:45)
[2023-07-29] MEDS ORDERED: Polyethylene Glycol 3350 17 GM PACKET PO PRN (10:09)
[2023-07-29] MEDS ORDERED: Benzocaine/Menthol LOZ PO PRN (15:27)
[2023-07-29] MEDS: Vancomycin 1000 MG in NS 0.9% 250 ML IVPB SCH (20:13)
[2023-07-30] MEDS: cefTRIAXone 2 gm/50 mL D5W 2 GM/50 ML BAG IV SCH (13:07)
[2023-07-31 06:30] LABS: ABS Eosinophils 0.2 10^3/uL (0.0-0.5); ABS Lymphocytes 0.6 10^3/uL (1.0-4.8); ABS Monocytes 0.4 10^3/uL (0.0-0.9); ABS Neutrophils 3.3 10^3/uL (1.5-7.6); Eosinophil % 4.9 %; Hematocrit 26.9 % (35-45); Hemoglobin 9.3 g/dL (11.5-14.3); Mean Corpuscular Hemoglobin 30.4 pg (27-33); Mean Corpuscular Hgb Conc 34.6 g/dL (31-36); Mean Corpuscular Volume 87.7 fL (80-97); Mean Platelet Volume 5.8 fL (7.5-11.2); Nucleated Red Blood Cells % 0.1 %/100WBC (0.0-0.8); Platelet Count 563 10^3/uL (150-450); Red Blood Count 3.06 10^6/uL (3.63-4.92); Red Cell Distribution Width 14.5 % (12-17); White Blood Count 4.6 10^3/uL (3.8-11.8)
[2023-07-31 09:14] VITALS: BP 125/67
[2023-07-31] MEDS: Vancomycin Trough Check NOTE FOLLOW UP ONE (09:58)
[2023-07-31 10:29] LABS: Albumin 3.2 g/dL (3.2-5.2); Albumin/Globulin Ratio 1.3 (1-3); C Reactive Protein 25.46 mg/L (<8.01); Creatinine, Serum 0.69 mg/dL (0.51-0.95); Globulin 2.5 g/dL (2-4); Potassium 4.5 mmol/L (3.5-5.0); Total Bilirubin 0.2 mg/dL (0.2-1.0); Total Protein 5.7 g/dL (6.4-8.9)
== END 2023-07-31 12:50 | disposition home or self-care (01) | DRG 541 ==
LOC: EDHOLD 00:50 → ED 00:50 → SUATTDRO 14:23 → MED 17:48
PROVIDERS: ADMIT Internal Medicine; ATTEND Internal Medicine

== ENCOUNTER 2023-10-21 19:11 | Observation (INO) ==
[2023-10-21] MEDS: Ondansetron 4 mg VIAL 2 MG/ML 2 ml VIAL IV ONE (20:05)
[2023-10-21 20:07] LABS: ABS Lymphocytes 0.8 10^3/uL (1.0-4.8); ABS Monocytes 0.5 10^3/uL (0.0-0.9); ABS Neutrophils 5.4 10^3/uL (1.5-7.6); ABS Nucleated RBC 0.01 10^3/ul; Eosinophil % 0.2 %; Hematocrit 39.8 % (35-45); Hemoglobin 13.3 g/dL (11.5-14.3); Lymphocyte % 11.8 %; Mean Corpuscular Hemoglobin 29.5 pg (27-33); Mean Corpuscular Hgb Conc 33.6 g/dL (31-36); Mean Corpuscular Volume 87.8 fL (80-97); Mean Platelet Volume 6.9 fL (7.5-11.2); Nucleated Red Blood Cells % 0.1 %/100WBC (0.0-0.8); Platelet Count 323 10^3/uL (150-450); Red Blood Count 4.53 10^6/uL (3.63-4.92); Red Cell Distribution Width 16.8 % (12-17); White Blood Count 6.8 10^3/uL (3.8-11.8)
[2023-10-21] MEDS: Morphine 4 MG/ML VIAL (1 ml) IV ONE ×2 (20:07→21:45)
[2023-10-21] MEDS: Pantoprazole VIAL 40 MG VIAL IV ONE (20:09)
[2023-10-21] MEDS: Lactated Ringers 1000 ml BAG 1,000 ML IV ONE ×2 (20:11→22:55)
[2023-10-21 21:00] LABS: Albumin 4.5 g/dL (3.2-5.2); Albumin/Globulin Ratio 1.8 (1-3); C Reactive Protein 17.16 mg/L (<8.01); Calcium 9.4 mg/dL (8.6-10.3); Creatinine, Serum 0.86 mg/dL (0.51-0.95); Globulin 2.5 g/dL (2-4); Potassium 4.3 mmol/L (3.5-5.0); Total Bilirubin 0.9 mg/dL (0.2-1.0); eGFR CKD-EPI 70.4 (>60)
[2023-10-21 21:44] LABS: INR 1.01 (0.85-1.14)
[2023-10-21] MEDS: Acetaminophen IV 1 GM/100ML 1,000 MG/100 ML BAG IV ONE (21:45)
[2023-10-21 21:53] LABS: Urine Appearance Clear; Urine Bilirubin Negative (Negative); Urine Blood Trace (Negative); Urine Color Yellow; Urine Glucose Negative (Negative); Urine Ketones 3+ (Negative); Urine Nitrite Negative (Negative); Urine Protein 1+ (>=30 mg/dL) (Negative); Urine Specific Gravity 1.035 (1.002-1.030); Urine Urobilinogen Negative (Negative); Urine pH 5.5 (5.0-8.0)
[2023-10-21 22:43] LABS: Urine Bacteria Absent /HPF (Absent); Urine Red Blood Cell Trace(0-2/hpf) /HPF (0-Trace); Urine Squamous Epithelial Cell Present /HPF (Absent); Urine White Blood Cell 1+(6-10/hpf) /HPF (0-Trace)
[2023-10-21 23:37] LABS: High Sensitivity Troponin 1 Hr < 3 pg/mL (<15)
[2023-10-22] MEDS: Morphine 4 MG/ML VIAL (1 ml) IV ONE (01:31)
[2023-10-22] MEDS ORDERED: Ondansetron 4 mg VIAL 2 MG/ML 2 ml VIAL IV PRN (02:10)
[2023-10-22] MEDS ORDERED: Acetaminophen IV 1 GM/100ML 1,000 MG/100 ML BAG IV PRN (02:14)
[2023-10-22] MEDS: Morphine 2 MG/ML SYRINGE IV PRN (04:02)
[2023-10-22] MEDS: Iohexol 300 (CONTRAST) 10 ML SDV IV ONE (06:26)
[2023-10-22 07:57] LABS: ABS Eosinophils 0.1 10^3/uL (0.0-0.5); ABS Lymphocytes 0.5 10^3/uL (1.0-4.8); ABS Monocytes 0.4 10^3/uL (0.0-0.9); ABS Neutrophils 2.5 10^3/uL (1.5-7.6); Eosinophil % 1.8 %; Hematocrit 31.5 % (35-45); Hemoglobin 10.4 g/dL (11.5-14.3); Lymphocyte % 15.4 %; Mean Corpuscular Hemoglobin 29.1 pg (27-33); Mean Corpuscular Hgb Conc 33.1 g/dL (31-36); Mean Corpuscular Volume 87.9 fL (80-97); Platelet Count 240 10^3/uL (150-450); Red Blood Count 3.58 10^6/uL (3.63-4.92); Red Cell Distribution Width 16.8 % (12-17); White Blood Count 3.5 10^3/uL (3.8-11.8)
[2023-10-22] MEDS: Lactated Ringers 1000 ml BAG 1,000 ML IV SCH (07:57)
[2023-10-22] MEDS: Heparin 5000 UNITS/ML 1 mL VIAL SUBCUT SCH (07:57)
[2023-10-22 08:16] LABS: Creatinine, Serum 0.71 mg/dL (0.51-0.95); Magnesium 1.8 mg/dL (1.9-2.7); eGFR CKD-EPI 88.6 (>60)
[2023-10-23 13:55] VITALS: BP 144/67
== END 2023-10-23 15:05 | disposition home or self-care (01) ==
LOC: ED 19:11 → EDHOLD 19:11 → SUATTDRO 10-22 02:10 → SSU 10-22 11:55
PROVIDERS: ADMIT Internal Medicine; ATTEND Student in an Organized Health Care Education/Training Program